=== PATIENT | male | born 1950 | race Caucasian/White ===

== ENCOUNTER 2016-06-12 08:10 | Day surgery (SDC) | payer OTHER ==
[~2016-06-12 08:10] MED LIST: IRON325 MG PO
--- NOTE | 2016-06-12 09:49 | NUR ---
PREOP INSTRUCTIONS GIVEN TO PATIENT. QUESTIONS ANSWERED. PATIENT VERBALIZES UNDERSTANDING. CONSENT CONFIRMED. NO PREOP MEDICATIONS GIVEN. PATIENT RESTING COMFORTABLY. KB
--- NOTE | 2016-06-12 12:05 | Provider's Discharge Care Plan ---
Problem, Goal, Plan Problem List 1. S/P EGD Goals: Diagnostic testing, Screening Instructions: Follow up as directed, Take meds as directed
--- NOTE | 2016-06-12 12:05 | Provider's Discharge Care Plan ---
Problem, Goal, Plan Problem List 1. S/P EGD Goals: Diagnostic testing, Screening Instructions: Follow up as directed, Take meds as directed
--- NOTE | 2016-06-12 12:09 | NUR ---
REC'D FROM OR;S SPONT RESP. REPOSITIONED ONTO BACK. AWAKE AND TALKING NON PRODUCTIVE COUGH. HOB ELEVATED 45 DEGREES.
--- NOTE | 2016-06-12 12:19 | NUR ---
DENTURE - UPPER AND GLASSES RETURNED TO PT.
--- NOTE | 2016-06-12 13:32 | NUR ---
PATIENT RETURNED TO THE FLOOR AWAKE AND TALKING. VSS. WATER OFFERED AND TOLERATED. PATIENT REFUSED ANY FURTHER PO. UP IN ROOM INDEPENDENTLY. DISCHARGE INSTRUCTIONS GIVEN TO PATIENT. QUESTIONS ANSWERED. PATIENT VERBALIZES UNDERSTANDING. WILL BE DISCHARGED HOME BY CLIFF. AREN
--- NOTE | 2016-06-12 20:09 | OPERATIVE REPORT ---
DATE OF SURGERY: 06/12/2016 SURGEON: Leo Moseley III, MD ACCOUNT DEVELOPMENT SPECIALIST: None PREOPERATIVE DIAGNOSIS: 1. Anemia, unknown etiology POSTOPERATIVE DIAGNOSES: 1. Large hiatal hernia 2. Questionable healed ulcer duodenal bulb PROCEDURE PERFORMED: 1. Upper gastrointestinal endoscopy with random gastric and distal esophageal mucosal biopsies ANESTHESIA: TIVA, posterior pharynx Cetacaine spray. COMPLICATIONS: No intraoperative or anesthetic complications. INDICATIONS: The patient is a 65-year-old male with anemia, who has undergone colonoscopy as part of his workup. The only diagnosis there was diverticulosis. The patient denies any hematemesis, bright red blood per rectum or melenic stool. SURGICAL FINDINGS: The patient was noted to have a normal-appearing duodenum. The bulb; however, appeared to be edematous in 1 region with questionable old ulcer that appeared healed. The gastric mucosa appeared grossly normal. He had a large hiatal hernia. The EG junction was 35 cm from the dental incisors. The esophagus appeared grossly normal. SURGICAL TECHNIQUE: The patient brought to the operating room, placed in the left lateral decubitus position, where he was administered TIVA and monitored closely by anesthesia. After his posterior pharynx sprayed with Cetacaine spray, an Olympus fiberoptic video flexible upper GI endoscope was passed down the patient's posterior pharynx. The esophagus intubated under direct visualization. The scope passed easily down the esophagus, through the EG junction, which was approximately 35 cm and immediately into the large hiatal hernia. The scope passed out of the hiatal hernia into the remaining gastric lumen and eventually into the second, third portion of duodenum. On withdrawing the scope, the aforementioned findings noted. Close observation was made of the bulb where a questionable old healed ulcer was identified. The scope was withdrawn into the gastric lumen, retroflexed, good view of the cardia, fundus, and EG junction below, as well as the greater and lesser curvature. Multiple random biopsies were obtained of the gastric mucosa to rule out H. pylori. The scope was withdrawn through the EG junction, where multiple random biopsies were obtained of the distal esophagus to rule out Herring's. The scope was completely withdrawn. The patient tolerated procedure well and was transferred to the recovery room in stable condition.
== END 2016-06-12 14:05 | disposition home or self-care (01) ==
LOC: OR SRH 08:10 → SCU SRH 08:15
PROVIDERS: Specialist
PROC: 0DB38ZX Excision of Lower Esophagus, Via Natural or Artificial Opening Endoscopic, Diagnostic (ICD-10-PCS; principal; 2016-06-12 10:30)
PROC: 0DB68ZX Excision of Stomach, Via Natural or Artificial Opening Endoscopic, Diagnostic (ICD-10-PCS; principal; 2016-06-12 10:30)
DX: D64.9 Anemia, unspecified (principal); K29.50 Unspecified chronic gastritis without bleeding; B96.81 Helicobacter pylori [H. pylori] as the cause of diseases classified elsewhere; K44.9 Diaphragmatic hernia without obstruction or gangrene; Z72.0 Tobacco use
CPT/HCPCS: 29229; 29240; 50004; 60001; 82943; 83526; 90047; 90074; 90705; 95059

== ENCOUNTER 2016-11-06 12:51 | Outpatient (CLI) | payer OTHER ==
--- NOTE | 2016-11-06 14:20 | DIAGNOSTIC IMAGING REPORT ---
PROCEDURE: CT LUMBAR SPINE W/O CONTRAST INDICATION: Multiple lumbar compression fractures. TECHNIQUE: Noncontrast axial images with sagittal and coronal reformations. COMPARISON: Comparison is made radiographs of the lumbar spine from [facility] falls on 10/30/2016. FINDINGS: There is a mild levoscoliosis of the lower lumbar spine. There is a 60% subacute compression fracture of the L2 vertebral body with 10% narrowing of the spinal canal. There is a 50% subacute compression fracture of the L4 vertebral body with retropulsed fragment resulting in 10-20% narrowing of the spinal canal. There is a 70% subacute compression fracture of the L5 vertebral body with a persistent anterior fracture line and mild narrowing of the central canal. Underlying osseous structures are osteopenic with a mottled appearance. No evidence of posterior element involvement. L1-2: Minimally bulging disc and mild facet disease. L2-3: Mild facet disease. L3-4: Moderately chronically bulging disc with retropulsed findings results in moderate narrowing of the central canal lateral recesses. L4-5: Moderately chronically bulging disc and mild facet disease associated with retropulsed fragment results in moderate narrowing of the central canal and lateral recesses. L5-S1: Mildly chronically bulging disc and facet disease. Findings suggest calcified gallstones (largest 2.0 cm). IMPRESSION: 1. There are multiple subacute compression fractures of the lumbar spine (L2 60%, L4 50%, L5 70%) with persistent fracture lines, and associated with retropulsed fragments at L4 and L5. 2. Osteopenia with mottled appearance of the osseous structures consistent with osteoporosis or myeloma. 3. Superimposed degenerative changes results in moderate narrowing of the central canal and lateral recesses at L3-4 and L4-5 levels. Consider bilateral L4 or bilateral L5 radiculopathy. 4. Findings suggest probable cholelithiasis (large calcified gallstones). 5. Findings called to Dr. Aaron Powers. All CT scans at this facility use dose modulation, iterative reconstruction, and/or weight-based dosing when appropriate to reduce radiation dose to as low as reasonably achievable.
== END 2016-11-06 23:00 | disposition home or self-care (01) ==
LOC: CT SRH 12:51
DX: S32.029A Unspecified fracture of second lumbar vertebra, initial encounter for closed fracture (principal); M85.88 Other specified disorders of bone density and structure, other site; M51.36 Other intervertebral disc degeneration, lumbar region